=== PATIENT | female | born 1990 | race Asian ===

== ENCOUNTER 2017-07-19 20:57 | Emergency (ER) | payer OTHER ==
[~2017-07-19] VITALS: Ht 152.4 cm; Wt 45.5 kg
[2017-07-19 21:32] LABS: BASOPHILS % (AUTO) 0.3 % (0.0-2.0); EOSINOPHILS % (AUTO) 2.5 % (1.0-6.0); HEMATOCRIT 37.5 % (36-46); HEMOGLOBIN 12.8 g/dL (12.0-16.0); LYMPHOCYTES # (AUTO) 2.1 K/uL (1.0-4.8); LYMPHOCYTES % (AUTO) 28.1 % (22.0-44.0); MEAN CORPUSCULAR HEMOGLOBIN 31.5 pg (26.0-34.0); MEAN CORPUSCULAR HGB CONC 34.2 G/dL (31.0-37.0); MEAN CORPUSCULAR VOLUME 92 fL (80-100); MONOCYTES # (AUTO) 0.6 K/uL (0.1-1.0); MONOCYTES % (AUTO) 8.1 % (2.0-9.0); NEUTROPHILS # (AUTO) 4.6 K/uL (1.8-7.7); PLATELET COUNT (AUTO) 307 K/uL (150-450); RED BLOOD CELL COUNT(AUTO) 4.07 MIL/uL (4.00-5.20); RED CELL DISTRIBUTION WIDTH 14.3 % (11.5-14.5)
[2017-07-19 21:36] LABS: ANION GAP 9 mmol/L (8-16); CALCIUM, TOTAL 8.7 mg/dL (8.8-10.5); CARBON DIOXIDE 26 mmol/L (22-29); CHLORIDE 102 mmol/L (98-107); CREATININE 0.59 mg/dL (0.60-1.30); GLOMERULAR FILTR. RATE CALC > 60 mL/min (>60); GLUCOSE,RANDOM 106 mg/dL (70-110); POTASSIUM 3.6 mmol/L (3.5-5.1); SODIUM SERUM 137 mmol/L (136-145); UREA NITROGEN, BLOOD 15 mg/dL (7-18)
[2017-07-19 21:40] LABS: ALANINE AMINOTRANSFERASE 24 U/L (12-78); ALBUMIN 3.9 g/dL (3.4-5.0); ALKALINE PHOSPHATASE 76 U/L (46-116); ASPARTATE AMINOTRANSFERASE 14 U/L (15-37); BILIRUBIN,TOTAL 0.3 mg/dL (0.1-1.0); TOTAL PROTEIN, SERUM 7.6 g/dL (6.4-8.2)
[2017-07-19 23:13] LABS: AMPHET/METH SCREEN,URINE NEGATIVE (NEGATIVE); BARBITURATE SCREEN, URINE NEGATIVE (NEGATIVE); BENZODIAZEPINES SCREEN,URINE NEGATIVE (NEGATIVE); CANNABINOID SCREEN,URINE NEGATIVE (NEGATIVE); COCAINE SCREEN,URINE NEGATIVE (NEGATIVE); METHADONE SCREEN, URINE NEGATIVE (NEGATIVE); OPIATE SCREEN,URINE NEGATIVE (NEGATIVE); PHENCYCLIDINE SCREEN,URINE NEGATIVE (NEGATIVE)
[2017-07-20 02:39] VITALS: BP 120/66
== END 2017-07-20 03:14 | disposition short-term general hospital (02) ==
LOC: EMS 20:59
DX: F32.9 Major depressive disorder, single episode, unspecified (principal); R45.850 Homicidal ideations; F29 Unspecified psychosis not due to a substance or known physiological condition; F17.210 Nicotine dependence, cigarettes, uncomplicated
CPT/HCPCS: 36415; 80053; 80307; 84703; 85025; 99285; G0480

== ENCOUNTER 2025-02-26 | Inpatient (IN) | payer MEDICARE, MEDICAID ==
[~2025-02-26] VITALS: Ht 157.5 cm; Wt 68.5 kg
[2025-02-26 00:32] LABS: COVID AG,FIA SOURCE NASAL SWAB
[2025-02-26 00:44] LABS: BASOPHILS % (AUTO) 0.9 % (0.0-2.0); EOSINOPHILS % (AUTO) 0.7 % (1.0-6.0); HEMATOCRIT 41.3 % (36-46); HEMOGLOBIN 13.8 g/dL (12.0-16.0); LYMPHOCYTES # (AUTO) 1.3 K/uL (1.0-4.8); LYMPHOCYTES % (AUTO) 15.3 % (22.0-44.0); MEAN CORPUSCULAR HEMOGLOBIN 31.5 pg (26.0-34.0); MEAN CORPUSCULAR HGB CONC 33.5 G/dL (31.0-37.0); MEAN CORPUSCULAR VOLUME 94 fL (80-100); MONOCYTES # (AUTO) 0.6 K/uL (0.1-1.0); MONOCYTES % (AUTO) 7.4 % (2.0-9.0); NEUTROPHILS # (AUTO) 6.5 K/uL (1.8-7.7); NEUTROPHILS % (AUTO) 75.7 % (40.0-70.0); PLATELET COUNT (AUTO) 396 K/uL (150-450); RED BLOOD CELL COUNT(AUTO) 4.39 MIL/uL (4.00-5.20); RED CELL DISTRIBUTION WIDTH 15.1 % (11.5-14.5); WHITE BLOOD COUNT (AUTO) 8.5 K/uL (4.5-11.0)
[2025-02-26 00:47] LABS: ALCOHOL, URINE DRUG SCREEN NEGATIVE (NEGATIVE); AMPHET/METH SCREEN,URINE NEGATIVE (NEGATIVE); BARBITURATE SCREEN, URINE NEGATIVE (NEGATIVE); BENZODIAZEPINES SCREEN,URINE NEGATIVE (NEGATIVE); CANNABINOID SCREEN,URINE NEGATIVE (NEGATIVE); COCAINE SCREEN,URINE NEGATIVE (NEGATIVE); METHADONE SCREEN, URINE NEGATIVE (NEGATIVE); OPIATE SCREEN,URINE NEGATIVE (NEGATIVE); PHENCYCLIDINE SCREEN,URINE NEGATIVE (NEGATIVE)
[2025-02-26 00:54] LABS: ANION GAP 11 mmol/L (8-16); CARBON DIOXIDE 24 mmol/L (22-29); CHLORIDE 101 mmol/L (98-107); CREATININE 0.94 mg/dL (0.60-1.30); GLOMERULAR FILTR. RATE CALC > 60 mL/min (>60); GLUCOSE,RANDOM 108 mg/dL (70-110); POTASSIUM 3.6 mmol/L (3.5-5.1); SODIUM SERUM 136 mmol/L (136-145); UREA NITROGEN, BLOOD 18 mg/dL (7-18)
[2025-02-26 00:56] LABS: SARS-COV2 (COVID) ANTIGEN,FIA Negative (Negative)
[2025-02-26] MEDS: DiphenhydrAMINE HCL 50 MG/ML VIAL IM ONE (02:11)
[2025-02-26] MEDS: LORazepam 2 MG/ML VIAL IM ONE (02:11)
[2025-02-26] MEDS: haloperidoL LACTATE 5 MG/ML VIAL IM ONE (02:12)
[2025-02-26 12:00] VITALS: O2SAT 98
[2025-02-26 17:06] VITALS: RESP 17
[2025-02-26 21:07] VITALS: BP 98/69; PULSE 76; RESP 18; TEMP 97.7
[2025-02-27] MEDS: haloperidoL 5 MG TABLET PO PRN (05:49)
[2025-02-27] MEDS: LORazepam 2 MG TABLET PO PRN (05:49)
[2025-02-27] MEDS ORDERED: MAG HYDROX/ALUMINUM HYD/SIMETH ES 30 ML SUSPENSION UDCUP PO PRN (08:30)
[2025-02-27] MEDS ORDERED: IBUPROFEN 600 MG TABLET PO PRN (08:30)
[2025-02-27] MEDS ORDERED: BACITRACIN 28 GM OINTMENT TP PRN (08:30)
[2025-02-27] MEDS ORDERED: ACETAMINOPHEN 325 MG TABLET PO PRN (08:30)
[2025-02-27] MEDS ORDERED: PETROLATUM,WHITE 28 GM JELLY TP PRN (08:30)
[2025-02-27] MEDS ORDERED: ONDANSETRON 4 MG TABLET PO PRN (08:30)
[2025-02-27] MEDS ORDERED: LOPERAMIDE HCL 2 MG CAPSULE PO PRN (08:30)
[2025-02-27] MEDS ORDERED: ALBUTEROL SULFATE HFA 90 MCG/PUFF 8 GM INHALER IH PRN (08:30)
[2025-02-27] MEDS ORDERED: CloNIDine HCL 0.1 MG TABLET PO PRN (08:30)
[2025-02-27] MEDS ORDERED: BENZOCAINE/MENTHOL [CEPACOL] LOZENGE PO PRN (08:30)
[2025-02-27] MEDS ORDERED: OMEPRAZOLE 20 MG CAPSULE PO PRN (08:30)
[2025-02-27 10:42] VITALS: BP 131/81; PULSE 99; RESP 18; TEMP 97.3; O2SAT 99
[2025-02-27] MEDS: OLANZapine 10 MG TABLET PO SCH (11:15)
[2025-02-27] MEDS: LITHIUM CARBONATE 300 MG CAPSULE PO SCH (12:02)
[2025-02-27 20:26] VITALS: BP 114/90; PULSE 89; RESP 18; TEMP 97.4; O2SAT 99
[2025-02-27] MEDS: LITHIUM CARBONATE 600 MG CAPSULE PO SCH (20:47)
[2025-02-28 08:07] VITALS: BP 121/92; PULSE 97; RESP 18; TEMP 97.4; O2SAT 90
[2025-02-28] MEDS: DOCUSATE SODIUM 100 MG CAPSULE PO PRN (13:19)
[2025-02-28 20:10] VITALS: BP 128/93; PULSE 99; RESP 18; TEMP 98.4; O2SAT 98
[2025-02-28] MEDS: RisperiDONE ER SUSPENSION 200 MG/0.56 ML PRE-FILLED SYRINGE SQ ONE (23:02)
[2025-02-28] MEDS: ZOLPIDEM TARTRATE 10 MG TABLET PO PRN (23:54)
[2025-03-01] MEDS ORDERED: LORazepam 2 MG/ML VIAL ONE (10:56)
[2025-03-01] MEDS ORDERED: ChlorproMAZINE HCL 50 MG/2 ML AMP ONE (10:57)
[2025-03-01] MEDS ORDERED: DiphenhydrAMINE HCL 50 MG/ML VIAL ONE (10:57)
[2025-03-01] MEDS: LORazepam 2 MG/ML VIAL IM ONE (12:07)
[2025-03-01] MEDS: DiphenhydrAMINE HCL 50 MG/ML VIAL IM ONE (12:07)
[2025-03-01] MEDS: ChlorproMAZINE HCL 50 MG/2 ML AMP IM ONE (12:07)
[2025-03-02 09:08] VITALS: BP 103/71; PULSE 120; RESP 18; TEMP 98.1; O2SAT 100
[2025-03-02 21:25] VITALS: RESP 18
[2025-03-03 08:36] VITALS: BP 90/61; PULSE 88; RESP 17; TEMP 97.5; O2SAT 95
[2025-03-03 20:05] VITALS: BP 100/80; PULSE 100; RESP 18; TEMP 98.8; O2SAT 98
[2025-03-04 08:28] VITALS: BP 118/84; PULSE 88; RESP 16; TEMP 98; O2SAT 98
[2025-03-04] MEDS: DiphenhydrAMINE HCL 50 MG/ML VIAL IM ONE (09:17)
[2025-03-04] MEDS: ChlorproMAZINE HCL 50 MG/2 ML AMP IM ONE (09:18)
[2025-03-04] MEDS: LORazepam 2 MG/ML VIAL IM ONE (09:18)
[2025-03-04 20:14] VITALS: BP 98/75; PULSE 94; RESP 18; TEMP 98.1; O2SAT 99
[2025-03-05] MEDS: ARIPiprazole 10 MG TABLET PO SCH (10:00)
[2025-03-05 14:39] VITALS: BP 113/87; PULSE 113; RESP 16; TEMP 97.8; O2SAT 99
[2025-03-05 21:28] VITALS: BP 124/100; PULSE 86; RESP 18; TEMP 98.2; O2SAT 98
[2025-03-06 08:33] VITALS: BP 111/65; PULSE 98; RESP 18; TEMP 97.9; O2SAT 98
[2025-03-06 20:35] VITALS: BP 114/68; PULSE 101; RESP 18; TEMP 97.9; O2SAT 96
[2025-03-07 08:18] VITALS: BP 127/72; PULSE 78; RESP 19; TEMP 98.2; O2SAT 95
[2025-03-07] MEDS: ARIPiprazole LAUROXIL ER SUSPENSION 882 MG/3.2 ML SYRINGE IM ONE (17:27)
[2025-03-07] MEDS: ARIPiprazole LAUROXIL,SUBMICR. ER SUSPENSION 675 MG/2.4 ML SYRINGE IM ONE (17:56)
[2025-03-07 20:59] VITALS: BP 108/80; PULSE 84; RESP 17; TEMP 97.5; O2SAT 100
[2025-03-08 08:37] VITALS: BP 109/75; PULSE 104; RESP 16; TEMP 97.9; O2SAT 97
[2025-03-08 20:26] VITALS: BP 100/74; PULSE 100; RESP 16; TEMP 98.9; O2SAT 96
[2025-03-09 08:19] VITALS: BP 122/88; PULSE 100; RESP 18; TEMP 97.8; O2SAT 97
[2025-03-09 20:00] VITALS: BP 100/62; PULSE 94; RESP 18; TEMP 98.4; O2SAT 100
[2025-03-10] MEDS: MAGNESIUM HYDROXIDE SUSPENSION 30 ML UDCUP PO PRN (07:04)
[2025-03-10 08:43] VITALS: BP 117/80; PULSE 108; RESP 16; TEMP 97.9; O2SAT 97
[2025-03-10 20:50] VITALS: BP 107/80; PULSE 95; RESP 17; TEMP 98.2; O2SAT 97
[2025-03-11 09:12] VITALS: BP 108/73; PULSE 64; RESP 18; TEMP 98.2; O2SAT 98
[2025-03-11 20:30] VITALS: BP 111/88; PULSE 89; RESP 18; TEMP 97.2; O2SAT 98
[2025-03-12 08:48] VITALS: BP 116/82; PULSE 100; RESP 17; TEMP 98.1; O2SAT 96
[2025-03-12 20:37] VITALS: BP 123/86; PULSE 73; RESP 18; TEMP 98.2; O2SAT 99
[2025-03-13 08:56] VITALS: BP 107/75; PULSE 98; RESP 18; TEMP 98; O2SAT 97
[2025-03-13 20:33] VITALS: BP 110/85; PULSE 95; RESP 18; TEMP 98.8; O2SAT 98
[2025-03-14] MEDS ORDERED: LITH600C PO (07:12)
[2025-03-14] MEDS ORDERED: ARIP882S2 IM (07:12)
[2025-03-14] MEDS ORDERED: LITH300C3 PO (07:12)
[2025-03-14 08:45] VITALS: BP 116/80; PULSE 92; RESP 18; TEMP 98.2; O2SAT 96
[2025-04-06] MEDS ORDERED: ARIPiprazole LAUROXIL ER SUSPENSION 882 MG/3.2 ML SYRINGE IM SCH (09:00)
[2025-04-28] MEDS ORDERED: RisperiDONE ER SUSPENSION 200 MG/0.56 ML PRE-FILLED SYRINGE SQ SCH (09:00)
== END 2025-03-14 11:40 | disposition home or self-care (01) | DRG 885 ==
LOC: EMS → B2S 15:18 → B2X 02-27 06:03
PROVIDERS: ADMIT Psychiatry & Neurology Psychiatry; ATTEND Psychiatry & Neurology Psychiatry
PROC: GZ56ZZZ Individual Psychotherapy, Supportive (ICD-10-PCS; 2025-02-27)
PROC: GZHZZZZ Group Psychotherapy (ICD-10-PCS; principal; 2025-03-01)
PROC: GZ52ZZZ Individual Psychotherapy, Cognitive (ICD-10-PCS; 2025-03-03)
DX: F25.0 Schizoaffective disorder, bipolar type (principal); F41.9 Anxiety disorder, unspecified; G47.00 Insomnia, unspecified; R45.850 Homicidal ideations; K59.00 Constipation, unspecified; Z20.822 Contact with and (suspected) exposure to COVID-19; Z91.148 Patient's other noncompliance with medication regimen for other reason; Z87.891 Personal history of nicotine dependence
CPT/HCPCS: 80048; 80178; 80307; 84703; 85025; 96372; 99285; G0480; J1200; J1630; J2060; J3230

== ENCOUNTER 2025-03-05 16:44 | Emergency (ER) | payer MEDICARE, OTHER ==
[~2025-03-05] VITALS: Ht 149.9 cm; Wt 70.7 kg
[2025-03-05 18:12] VITALS: BP 116/71; PULSE 93; RESP 18; TEMP 98.6; O2SAT 96
== END 2025-03-05 21:00 | disposition home or self-care (01) ==
LOC: EMS 16:44
DX: S30.0XXA Contusion of lower back and pelvis, initial encounter (principal); F17.210 Nicotine dependence, cigarettes, uncomplicated; F25.9 Schizoaffective disorder, unspecified; Z98.890 Other specified postprocedural states; X58.XXXA Exposure to other specified factors, initial encounter; Y93.89 Activity, other specified; Y92.89 Other specified places as the place of occurrence of the external cause; Y99.8 Other external cause status
CPT/HCPCS: 99283; Z7502